=== PATIENT | male | born 1975 | race Caucasian/White ===

== ENCOUNTER 2017-03-22 05:12 | Emergency (ER) | payer BC ==
[~2017-03-22] VITALS: Ht 170.2 cm; Wt 115.7 kg
--- NOTE | 2017-03-22 05:28 | ED EENT ---
History of Present Illness General Chief Complaint: Oral/Throat Problems Stated Complaint: SORE THROAT,TONGUE SWELLING Source: patient, spouse Exam Limitations: no limitations History of Present Illness Time seen by provider: 05:23 Initial Comments Patient presents to ER with his spouse by private conveyance with a chief complaint of a sore throat that began approximately 2-1/2 days ago. He started feeling a bump on the back of his throat that felt like a burn or scalded tongue that concerned him about 24 hours ago so he decided he needed to present to the ER. He says he felt a little feverish but has not measured any fevers nausea and chills sweats nausea vomiting chest pain shortness of breath or diarrhea. Allergies and Home Medications Allergies Coded Allergies: No Known Drug Allergies (Unverified , 03/22/17) Home Medications No Active Prescriptions or Reported Meds Review of Systems Constitutional: see HPI, No chills, No diaphoresis, fever, No malaise Eyes: Denies Blurred Vision, Denies Pain Ears: Denies Dizziness, Denies Pain Nose: congestion, denies epistaxis, denies pain, clear discharge Mouth: see HPI, denies bloody discharge, denies purulent discharge Throat: pain, swelling Respiratory: short of breath, No wheezing Cardiovascular: No chest pain, No syncope Gastrointestinal: No nausea, No vomiting Past [id number] Hx Patient Social History Alcohol Use: Denies Use Recreational Drug Use: No Smoking Status: Never a Smoker 2nd Hand Smoke Exposure: Yes Recent Foreign Travel: No Contact w/Someone Who Travel: No Physical Exam Vital Signs Vital Sign - Last 12Hours 03/22/17 05:22 Temp 98.1 Pulse 94 Resp 18 B/P (MAP) 155/109 Pulse Ox 96 O2 Delivery Room Air General Appearance: WD/WN, no apparent distress Eyes: bilateral eye EOMI, bilateral eye PERRL, bilateral eye normal inspection Ears: bilateral ear TM normal (bilateral clear effusion), bilateral ear auricle normal, bilateral ear canal normal Nose: No discharge, No sinus tenderness Mouth/Throat: No tongue swollen, No tonsillar exudate, tonsillar swelling Neck: non-tender, supple, normal inspection Cardiovascular: normal peripheral pulses, regular rate, rhythm Respiratory: lungs clear, normal breath sounds Neurologic/Psychiatric: alert, oriented x 3 Progress/Results/Core Measures Results/Orders Lab Results Laboratory Tests Test 03/22/17 05:25 Range/Units Group A Streptococcus Screen NEGATIVE NEGATIVE My Orders Orders - JOHANNA BEYER Rapid Strep A Screen (03/22/17 05:28) Vital Signs/I&O Vital Sign - Last 12Hours 03/22/17 05:22 Temp 98.1 Pulse 94 Resp 18 B/P (MAP) 155/109 Pulse Ox 96 O2 Delivery Room Air Departure Impression Impression: Primary Impression: Pharyngitis Qualified Codes: J02.9 - Acute pharyngitis, unspecified Disposition: HOME, SELF-CARE Condition: Stable Departure-Patient Inst. Decision time for Depature: 05:47 Referrals: NO,LOCAL PHYSICIAN (PCP) Primary Care Physician Patient Instructions: Viral Pharyngitis (DC) Add. Discharge Instructions: He seemed to be experiencing a viral pharyngitis by with benign aphthous ulcers. These are usually caused by a virus that is self-limited usually in the 5-7 day range. You can use salt water gargles, Chloraseptic sprays, humidifiers , vapor rubs, Tylenol, Motrin and warm liquids such as broth as needed to control your symptoms. If he started having new or worrisome symptoms such as nausea vomiting or fever above 102 he should return to the ER otherwise he can follow up with your primary care physician. Since the strep screen was negative we will send the sample off for culture and you should be able to log onto via [facility]'s website and see the results in 2-3 days. All discharge instructions reviewed with patient and/or family. Voiced understanding. Scripts No Active Prescriptions or Reported Meds JOHANNA BEYER Mar 22, 2017 05:28
[2017-03-22 05:52] VITALS: BP 155/109
== END 2017-03-22 05:51 | disposition home or self-care (01) ==
LOC: ER 05:16
DX: J02.9 Acute pharyngitis, unspecified (principal)
CPT/HCPCS: 87430; 99282